=== PATIENT | female | born 1985 | race Caucasian/White ===

== ENCOUNTER 2019-12-17 13:41 | Emergency (ER) | payer MEDICAID ==
[~2019-12-17] VITALS: Ht 170.2 cm; Wt 95.7 kg
[2019-12-17 13:46] VITALS: BP 134/86
== END 2019-12-17 14:55 | disposition home or self-care (01) ==
LOC: ED 14:08
DX: J00 Acute nasopharyngitis [common cold] (principal)
CPT/HCPCS: 71045; 99283

== ENCOUNTER 2020-10-13 20:13 | Emergency (ER) | payer MEDICAID ==
[~2020-10-13] VITALS: Ht 172.7 cm; Wt 97.4 kg
[2020-10-13] MEDS ORDERED: MECLIZINE CHEWABLE 25 MG TAB PO ONE (21:00)
[2020-10-13] MEDS ORDERED: MECLIZINE CHEWABLE 25 MG TAB ONE (21:11)
[2020-10-13 21:16] LABS: BASOPHILS % (AUTO) 0 % (0-1); EOSINOPHILS % (AUTO) 2 % (1-7); LYMPHOCYTES % (AUTO) 34 % (22-44); MEAN CORPUSCULAR HEMOGLOBIN 31.2 pg (27.0-34.8); MEAN CORPUSCULAR HGB CONC 33.7 g/dL (32.4-35.8); MEAN PLATELET VOLUME 7.8 fL (7.4-10.4); MONOCYTES % (AUTO) 5 % (2-9); NEUTROPHILS % (AUTO) 59 % (42-75); PLATELET COUNT 328 x10^3/uL (130-400); RED BLOOD COUNT 4.61 x10^6/uL (3.82-5.3); RED CELL DISTRIBUTION WIDTH 12.9 % (9.6-15.2)
[2020-10-13 21:23] LABS: ALBUMIN 3.6 g/dL (3.4-5.0); ANION GAP 5 mmol/L (5-15); CHLORIDE 107 mmol/L (98-107)
[2020-10-13 21:28] LABS: CREATININE 0.76 mg/dL (0.55-1.02); MD NO
--- NOTE | 2020-10-13 21:49 | NUR ---
PATIENT RESTING ON STRETCHER, WATCHING TV, STATES THAT HER DIZZINESS IS DECREASING AFTER MEDICATION. VSS, NAD, CALL HERR WITHIN REACH, WILL CONTINUE TO MONITOR
[2020-10-13 22:37] VITALS: BP 128/79
== END 2020-10-13 22:41 | disposition home or self-care (01) ==
LOC: ED 21:10
DX: R42 Dizziness and giddiness (principal); Z87.891 Personal history of nicotine dependence
CPT/HCPCS: 36415; 80048; 82040; 84703; 85025; 93005; 99284

== ENCOUNTER 2020-12-06 20:58 | Emergency (ER) | payer MEDICAID ==
[~2020-12-06] VITALS: Ht 170.2 cm; Wt 98.0 kg
--- NOTE | 2020-12-06 21:24 | NUR ---
Pt to ER with c/o LIM, cough, runny nose, CP and not feeling well x 2 days. Pt states having slight fever at home. Pt on RA, no distress. Pt attached to monitor. Warm blanket given. EKG done in triage. Will monitor
[2020-12-07 00:47] VITALS: BP 123/80
== END 2020-12-07 00:49 | disposition home or self-care (01) ==
LOC: ED 21:28
DX: J00 Acute nasopharyngitis [common cold] (principal); R07.89 Other chest pain; R05 Cough; R09.81 Nasal congestion
CPT/HCPCS: 71046; 93005; 99283